=== PATIENT | female | born 1985 | race African-American/Black ===

== ENCOUNTER 2019-10-18 11:34 | Emergency (ER) | payer SELFPAY ==
[~2019-10-18] VITALS: Ht 170.2 cm; Wt 55.0 kg
[2019-10-18 11:56] VITALS: BP 117/73
[2019-10-18 13:21] LABS: BASOPHILS % 0.9 % (0.0-2.0); EOSINOPHILS % 0.7 % (0.0-5.0); HEMATOCRIT. 40.6 % (36.0-48.0); HEMOGLOBIN. 13.3 g/dL (12.0-16.0); LYMPHOCYTES % 32.8 % (20.0-50.0); MEAN CORPUSCULAR HEMOGLOBIN 27.7 pg (28.0-32.0); MEAN CORPUSCULAR VOLUME 84.3 fL (81.0-99.0); MEAN PLATELET VOLUME 10.2 fl (7.4-10.4); MONOCYTES % 9.5 % (2.0-8.0); NEUTROPHILS % 56.1 % (40.0-76.0); PLATELET 162 x1000/uL (130-400); RED BLOOD CELL COUNT 4.81 mill/uL (4.2-5.4); RED CELL DISTRIBUTION WIDTH 13.8 % (11.6-14.6)
[2019-10-18 13:27] LABS: CHLORIDE 107 mEq/L (98-107)
[2019-10-18 13:28] LABS: PROTHROMBIN TIME 10.7 sec (9.6-11.0)
== END 2019-10-18 14:38 | disposition home or self-care (01) ==
LOC: ER 12:16
DX: M79.602 Pain in left arm (principal); I25.2 Old myocardial infarction
CPT/HCPCS: 36415; 71045; 80053; 83880; 84484; 85025; 93005; 99285

== ENCOUNTER 2021-01-05 09:39 | Emergency (ER) | payer SELFPAY ==
[~2021-01-05] VITALS: Ht 157.5 cm; Wt 60.0 kg
[2021-01-05 09:43] VITALS: BP 107/58
[2021-01-05] MEDS ORDERED: BACITRACIN ZINC OINT UDPKT TOP ONE (10:30)
== END 2021-01-05 10:58 | disposition home or self-care (01) ==
LOC: ER 09:39
DX: R23.8 Other skin changes (principal)
CPT/HCPCS: 99282

== ENCOUNTER 2021-02-01 23:44 | Emergency (ER) | payer SELFPAY ==
[~2021-02-01] VITALS: Ht 167.6 cm; Wt 50.0 kg
[2021-02-02] MEDS ORDERED: ACETAMINOPHEN 325MG TABLET PO ONE (02:15)
[2021-02-02 02:36] LABS: BASOPHILS % 1.4 % (0.0-2.0); HEMATOCRIT. 35.6 % (36.0-48.0); HEMOGLOBIN. 11.5 g/dL (12.0-16.0); LYMPHOCYTES % 34.6 % (20.0-50.0); MEAN CORPUSCULAR HEMOGLOBIN 27.4 pg (28.0-32.0); MEAN CORPUSCULAR VOLUME 85.1 fL (81.0-99.0); MEAN PLATELET VOLUME 10.6 fl (7.4-10.4); MONOCYTES % 7.4 % (2.0-8.0); NEUTROPHILS % 55.6 % (40.0-76.0); PLATELET 201 x1000/uL (130-400); RED BLOOD CELL COUNT 4.19 mill/uL (4.2-5.4); RED CELL DISTRIBUTION WIDTH 15.4 % (11.6-14.6)
[2021-02-02 02:42] LABS: CLARITY URINE CLEAR (CLEAR); COLOR URINE YELLOW (YELLOW); KETONES URINE 1+ (NEGATIVE); LEUKOCYTE ESTERASE URINE TRACE (NEGATIVE); NITRITE URINE NEGATIVE (NEGATIVE); OCCULT BLOOD URINE 2+ (NEGATIVE); PH URINE 5.5 (4.5-8.0); PROTEIN URINE NEGATIVE (NEGATIVE); SPECIFIC GRAVITY URINE 1.035 (1.005-1.030)
[2021-02-02 02:47] LABS: CHLORIDE 108 mEq/L (98-107)
[2021-02-02 02:48] LABS: HCG SCREEN NEGATIVE
[2021-02-02] MEDS ORDERED: POTASSIUM CHLORIDE 20MEQ TABLET SR PO ONE (04:00)
[2021-02-02 04:55] VITALS: BP 107/56
== END 2021-02-02 05:03 | disposition home or self-care (01) ==
LOC: ER 23:44
DX: D21.9 Benign neoplasm of connective and other soft tissue, unspecified (principal); E87.6 Hypokalemia; D64.9 Anemia, unspecified; N93.8 Other specified abnormal uterine and vaginal bleeding; I25.2 Old myocardial infarction
CPT/HCPCS: 36415; 76830; 76856; 80053; 81003; 81025; 84703; 85025; 86850; 86900; 99284

== ENCOUNTER 2021-08-23 04:21 | Emergency (ER) | payer MEDICAID ==
[~2021-08-23] VITALS: Ht 167.6 cm; Wt 50.0 kg
[2021-08-23 06:09] LABS: HEMATOCRIT. 37.1 % (36.0-48.0); HEMOGLOBIN. 11.6 g/dL (12.0-16.0); MEAN CORPUSCULAR HEMOGLOBIN 26.1 pg (28.0-32.0); MEAN CORPUSCULAR VOLUME 83.6 fL (81.0-99.0); MEAN PLATELET VOLUME 10.6 fl (7.4-10.4); PLATELET 176 x1000/uL (130-400); RED BLOOD CELL COUNT 4.44 mill/uL (4.2-5.4); RED CELL DISTRIBUTION WIDTH 14.6 % (11.6-14.6)
[2021-08-23 06:16] LABS: CHLORIDE 103 mEq/L (98-107)
[2021-08-23 06:58] LABS: HCG SCREEN NEGATIVE
[2021-08-23 08:12] LABS: PLATELET ESTIMATE NORMAL
[2021-08-23 09:06] VITALS: BP 135/76
== END 2021-08-23 09:07 | disposition home or self-care (01) ==
LOC: ER 04:21
DX: U07.1 COVID-19 (principal); K29.70 Gastritis, unspecified, without bleeding; I25.2 Old myocardial infarction
CPT/HCPCS: 36415; 71045; 80053; 84484; 84703; 85025; 93005; 99285; C9803; U0003; U0005

== ENCOUNTER 2022-06-24 08:46 | Emergency (ER) | payer MEDICAID, OTHER ==
[~2022-06-24] VITALS: Ht 167.6 cm; Wt 75.0 kg
[2022-06-24 08:56] VITALS: BP 133/53
[2022-06-24] MEDS ORDERED: MAGNESIUM/ALUMINUM HYDROXIDE/SIMETHICONE 30ML UDC PO STA (09:18)
[2022-06-24] MEDS ORDERED: ONDANSETRON 4MG ODT PO STA (09:18)
[2022-06-24] MEDS ORDERED: VISCOUS LIDOCAINE 2% 15 ML UDC PO STA (09:18)
[2022-06-24] MEDS ORDERED: FAMOTIDINE 20MG TABLET PO ONE (09:30)
[2022-06-24] MEDS ORDERED: SODIUM CHLORIDE 0.9% 1,000 ML IV ONE (10:15)
[2022-06-24 10:28] LABS: BASOPHILS % 0.5 % (0.0-2.0); HEMATOCRIT. 36.7 % (36.0-48.0); HEMOGLOBIN. 11.4 g/dL (12.0-16.0); LYMPHOCYTES % 10.1 % (20.0-50.0); MEAN CORPUSCULAR VOLUME 83.7 fL (81.0-99.0); MEAN PLATELET VOLUME 9.3 fl (7.4-10.4); MONOCYTES % 3.1 % (2.0-8.0); NEUTROPHILS % 86.3 % (40.0-76.0); PLATELET 217 x1000/uL (130-400); RED BLOOD CELL COUNT 4.39 mill/uL (4.2-5.4); RED CELL DISTRIBUTION WIDTH 15.8 % (11.6-14.6)
[2022-06-24 10:36] LABS: CHLORIDE 106 mEq/L (98-107)
[2022-06-24 11:01] LABS: HCG SCREEN NEGATIVE
== END 2022-06-24 13:28 | disposition home or self-care (01) ==
LOC: ER 08:46
DX: R10.13 Epigastric pain (principal); F10.10 Alcohol abuse, uncomplicated; I25.2 Old myocardial infarction; Z98.890 Other specified postprocedural states; Y90.9 Presence of alcohol in blood, level not specified
CPT/HCPCS: 36415; 80053; 83690; 84703; 85025; 93005; 99284; J7030; Q0162; Z7610

== ENCOUNTER 2023-07-24 13:35 | Emergency (ER) | payer OTHER ==
[~2023-07-24] VITALS: Ht 160 cm; Wt 50.0 kg
[2023-07-24 14:11] VITALS: TEMP 98.3; O2SAT 100
[2023-07-24 15:09] LABS: BASOPHILS % 0.9 % (0.0-2.0); EOSINOPHILS % 0.3 % (0.0-5.0); HEMATOCRIT. 33.3 % (36.0-48.0); HEMOGLOBIN. 10.4 g/dL (12.0-16.0); LYMPHOCYTES % 22.9 % (20.0-50.0); MEAN CORPUSCULAR HGB CONC 31.2 g/dL (31.0-37.0); MEAN CORPUSCULAR VOLUME 83.3 fL (81.0-99.0); MEAN PLATELET VOLUME 9.7 fl (7.4-10.4); MONOCYTES % 7.5 % (2.0-8.0); NEUTROPHILS % 68.4 % (40.0-76.0); PLATELET 240 x1000/uL (130-400); RED CELL DISTRIBUTION WIDTH 16.4 % (11.6-14.6); WHITE BLOOD COUNT 9.3 x1000/uL (4.5-11.0)
[2023-07-24 15:19] LABS: PROTHROMBIN TIME 10.9 sec (9.6-11.0)
[2023-07-24 15:31] LABS: ALANINE AMINOTRANSFERASE < 7 IU/L (10-49); ALBUMIN 4.4 g/dL (3.2-4.8); ASPARTATE AMINOTRANSFERASE 13 IU/L (<34); BILIRUBIN TOTAL 0.5 mg/dL (0.1-1.0); CALCIUM 9.4 mg/dL (8.7-10.4); CARBON DIOXIDE 25 mEq/L (21-32); CHLORIDE 106 mEq/L (98-107); CREATININE 0.7 mg/dL (0.6-1.0); GLUCOSE 75 mg/dL (70-105); POTASSIUM 3.5 mEq/L (3.5-5.1); PROTEIN TOTAL 6.5 g/dL (6.0-8.3); SODIUM 139 mEq/L (136-145); UREA NITROGEN BLOOD 7 mg/dL (9-23)
[2023-07-24 15:59] LABS: CLARITY URINE CLOUDY (CLEAR); COLOR URINE YELLOW (YELLOW); PH URINE 5.5 (4.5-8.0); SPECIFIC GRAVITY URINE 1.034 (1.005-1.030)
[2023-07-24 16:00] LABS: GLUCOSE URINE NEGATIVE (NEGATIVE); KETONES URINE 2+ (NEGATIVE); LEUKOCYTE ESTERASE URINE NEGATIVE (NEGATIVE); NITRITE URINE NEGATIVE (NEGATIVE); OCCULT BLOOD URINE 3+ (NEGATIVE); PROTEIN URINE TRACE (NEGATIVE)
[2023-07-24 16:16] LABS: BACTERIA URINE 2+; RBC URINE 15-25 /hpf (0-2); SQUAMOUS EPITHELIAL CELL URINE 2+ /lpf (RARE/1+); WBC URINE 0-2 /hpf (0-2)
[2023-07-24] MEDS ORDERED: MORPHINE SULFATE 4 MG/ML CPJ (NOT FOR IM USE) IV ONE ×2 (16:30→19:45)
[2023-07-24] MEDS ORDERED: MORPHINE SULFATE 4 MG/ML CPJ (NOT FOR IM USE) IV NR ×2 (17:45→19:45)
[2023-07-24 19:45] VITALS: BP 111/70; PULSE 61; RESP 16
[2023-07-24] MEDS ORDERED: KETOROLAC 30MG/ML VIAL IV ONE (19:45)
[2023-07-24] MEDS ORDERED: KETOROLAC 30MG/ML VIAL IV NR (19:45)
[2023-07-24] MEDS ORDERED: IOHEXOL-300 100 ML BOTTLE ONE (20:56)
== END 2023-07-25 00:08 | disposition short-term general hospital (02) ==
LOC: ER 15:00
DX: D25.9 Leiomyoma of uterus, unspecified (principal); I25.2 Old myocardial infarction
CPT/HCPCS: 80053; 81003; 81025; 83690; 85025; 85610; 36415; 74177; 93976; 76830; 76856; 96374; 96375; 96376; 99285; Q9967; J1885; J2270; Z7610 ×2